=== PATIENT | female | born 1995 | race Two or more races ===

== ENCOUNTER 2019-01-22 23:32 | Emergency (ER) | payer OTHER ==
[~2019-01-22] VITALS: Ht 157.5 cm; Wt 58.5 kg
[~2019-01-22 23:32] MED LIST: NITROFURANTOIN100 MG PO
[2019-01-23] MEDS ORDERED: PRENATAL 19 TA1 EACH PO (02:15)
[2019-01-23] MEDS ORDERED: BUTALB-ACETAMI1 EAC2 PO (05:27)
== END 2019-01-23 05:43 | disposition home or self-care (01) ==
LOC: ER 23:32
DX: G44.209 Tension-type headache, unspecified, not intractable (principal)

== ENCOUNTER 2019-04-06 20:54 | Outpatient (CLI) | payer OTHER ==
[~2019-04-06 20:54] MED LIST changes: +BUTALB-ACETAMI1 EAC2 PO; +PRENATAL 19 TA1 EACH PO
== END 2019-04-07 17:32 | disposition home or self-care (01) ==
LOC: OBS/DEL 20:54
DX: O60.02 Preterm labor without delivery, second trimester (principal); O35.8XX0 Maternal care for other (suspected) fetal abnormality and damage, not applicable or unspecified

== ENCOUNTER 2019-07-05 08:42 | Inpatient (IN) | payer OTHER ==
[~2019-07-05] VITALS: Ht 157.5 cm; Wt 74.4 kg
== END 2019-07-07 12:01 | disposition home or self-care (01) | DRG 807 ==
LOC: OB/GYN 08:42 → LDR 08:42 → OB/GYN 12:20
PROVIDERS: ADMIT Obstetrics & Gynecology
PROC: 10E0XZZ Delivery of Products of Conception, External Approach (ICD-10-PCS; principal; 2019-07-05)
PROC: 4A1HXCZ Monitoring of Products of Conception, Cardiac Rate, External Approach (ICD-10-PCS; 2019-07-05)
DX: O80 Encounter for full-term uncomplicated delivery (principal); Z37.0 Single live birth; Z3A.38 38 weeks gestation of pregnancy

== ENCOUNTER 2021-09-11 08:17 | Emergency (ER) | payer OTHER ==
[~2021-09-11] VITALS: Ht 154.9 cm; Wt 58.1 kg
== END 2021-09-11 16:23 | disposition home or self-care (01) ==
LOC: ER 08:17
DX: A05.9 Bacterial foodborne intoxication, unspecified (principal); R19.7 Diarrhea, unspecified; R11.10 Vomiting, unspecified